=== PATIENT | male | born 1990 | race Caucasian/White ===

== ENCOUNTER 2018-02-06 05:16 | Emergency (ER) | payer OTHER ==
[2018-02-06 06:19] LABS: Basophils % (A) 0 %; Eosinophils # (A) 0.2 k/uL (0-0.7); Eosinophils % (A) 4 %; HGB 16.5 gm/dL (13.0-17.5); Lymphocytes # (A) 1.6 k/uL (1.0-4.8); Lymphocytes % (A) 32 %; MCH 29.3 pg (25.0-35.0); MCHC 34.4 g/dL (31.0-37.0); Mean Platelet Volume 6.9; Monocytes # (A) 0.4 k/uL (0-1.0); Monocytes % (A) 8 %; Neutrophils # (A) 2.7 k/uL (1.3-7.7); Neutrophils % (A) 53 %; Platelet Count 212 k/uL (150-450); RBC 5.65 m/uL (4.30-5.90); WBC 5.1 k/uL (3.8-10.6)
--- NOTE | 2018-02-06 06:22 | ED ---
Abdominal Pain HPI - General Source: patient Mode of arrival: ambulatory Limitations: no limitations - History of Present Illness MD Complaint: abdominal pain -: hour(s) Location: RUQ Radiation: none Migration to: no migration Severity: moderate Quality: dull Consistency: colicky Improves With: nothing Worsens With: eating Associated Symptoms: nausea <ClaraLuke - Last Filed: 02/06/18 06:20> <Sawyer Fairbanks - Last Filed: 02/06/18 09:23> - General Chief Complaint: Abdominal Pain Stated Complaint: Flank Pain/pressure Time Seen by Provider: 02/06/18 05:26 - Related Data Home Medications Medication Instructions Recorded Confirmed Ibuprofen [Advil] 400 mg PO Q6HR PRN 02/06/18 02/06/18 Allergies Allergy/AdvReac Type Severity Reaction Status Date / Time No Known Allergies Allergy Verified 02/06/18 07:21 Review of Systems ROS Other: All systems not noted in ROS Statement are negative. Constitutional: Denies: fever, chills Respiratory: Denies: cough, dyspnea Cardiovascular: Denies: chest pain, palpitations, edema Gastrointestinal: Reports: abdominal pain, nausea. Denies: vomiting, diarrhea, constipation, melena, hematochezia Genitourinary: Denies: dysuria, frequency, hematuria, testicular pain Musculoskeletal: Denies: back pain Skin: Denies: rash Neurological: Denies: headache <ClaraLuke - Last Filed: 02/06/18 06:20> ROS Other: All systems not noted in ROS Statement are negative. <Sawyer Fairbanks - Last Filed: 02/06/18 09:23> ROS Statement: Those systems with pertinent positive or pertinent negative responses have been documented in the HPI. Past Medical History Past Medical History: No Reported History Additional Past Medical History / Comment(s): kidney stones History of Any Multi-Drug Resistant Organisms: None Reported Past Surgical History: Appendectomy Additional Past Surgical History / Comment(s): nasal surgery Past Psychological History: No Psychological Hx Reported Smoking Status: Never smoker Past Alcohol Use History: Occasional Past Drug Use History: None Reported <Luke Elizabeth - Last Filed: 02/06/18 06:20> General Exam Limitations: no limitations General appearance: alert, in no apparent distress Head exam: Present: atraumatic, normocephalic Eye exam: Present: normal appearance, PERRL, EOMI. Absent: scleral icterus, conjunctival injection Respiratory exam: Present: normal lung sounds bilaterally. Absent: respiratory distress, wheezes, rales, rhonchi, stridor Cardiovascular Exam: Present: regular rate, normal rhythm, normal heart sounds. Absent: systolic murmur, diastolic murmur, rubs, gallop GI/Abdominal exam: Present: soft, normal bowel sounds. Absent: distended, tenderness, guarding, rebound, rigid, mass, pulsatile mass, hernia Extremities exam: Present: normal inspection, normal capillary refill. Absent: pedal edema, calf tenderness Back exam: Present: normal inspection. Absent: CVA tenderness (R), CVA tenderness (L) Neurological exam: Present: alert Skin exam: Present: warm, dry, intact, normal color. Absent: rash <Luke Elizabeth - Last Filed: 02/06/18 06:20> Course <Luke Elizabeth - Last Filed: 02/06/18 06:20> <Sawyer Fairbanks - Last Filed: 02/06/18 09:23> Vital Signs 02/06/18 02/06/18 02/06/18 05:18 06:58 07:39 Temperature 98.8 F 98.1 F 100.5 F H Pulse Rate 80 70 68 Respiratory 18 17 18 Rate Blood Pressure 138/88 125/76 131/78 O2 Sat by Pulse 98 100 99 Oximetry 02/06/18 08:54 Temperature 99.2 F Pulse Rate 75 Respiratory 18 Rate Blood Pressure 128/81 O2 Sat by Pulse 98 Oximetry - Reevaluation(s) Reevaluation #1: 02/06/18 08:05 Patient reevaluated by myself, Dr. Fairbanks. Patient resting comfortably in bed. Patient does have mild to moderate tenderness to palpation mostly in the right upper quadrant. Patient updated on results. Patient has now developed a temperature of 100.5. Patient is receptive to computed tomography scan. Patient refuses any medication. 02/06/18 09:21 Patient again reevaluated and resting comfortably at bedside. Patient updated on CT results and need for further studies. Patient also updated on need for follow-up. Patient also refuses Tylenol. Patient updated on need to return for worsening symptoms (Sawyer Fairbanks) Medical Decision Making - Lab Data Result diagrams: 02/06/18 05:57 <Luke Elizabeth - Last Filed: 02/06/18 06:20> - Lab Data Result diagrams: 02/06/18 05:57 02/06/18 05:57 - Radiology Data Radiology results: report reviewed (Ultrasound gallbladder shows no acute process. Probable hemangioma. Computed tomography scan of the abdomen pelvis shows no acute process. Liver lesion.), image reviewed (KUB shows no acute process) <Sawyer Fairbanks - Last Filed: 02/06/18 09:23> - Lab Data Lab Results 02/06/18 02/06/18 02/06/18 Range/Units 05:57 05:57 06:37 WBC 5.1 (3.8-10.6) k/uL RBC 5.65 (4.30-5.90) m/uL Hgb 16.5 (13.0-17.5) gm/dL Hct 48.0 (39.0-53.0) % MCV 85.0 (80.0-100.0) fL MCH 29.3 (25.0-35.0) pg MCHC 34.4 (31.0-37.0) g/dL RDW 12.0 (11.5-15.5) % Plt Count 212 (150-450) k/uL Neutrophils % 53 % Lymphocytes % 32 % Monocytes % 8 % Eosinophils % 4 % Basophils % 0 % Neutrophils # 2.7 (1.3-7.7) k/uL Lymphocytes # 1.6 (1.0-4.8) k/uL Monocytes # 0.4 (0-1.0) k/uL Eosinophils # 0.2 (0-0.7) k/uL Basophils # 0.0 (0-0.2) k/uL Sodium 140 (137-145) mmol/L Potassium 3.7 (3.5-5.1) mmol/L Chloride 103 (98-107) mmol/L Carbon Dioxide 28 (22-30) mmol/L Anion Gap 9 mmol/L BUN 12 (9-20) mg/dL Creatinine 1.00 (0.66-1.25) mg/dL Est GFR (CKD-EPI)AfAm >90 (>60 ml/min/1.73 sqM) Est GFR (CKD-EPI)NonAf >90 (>60 ml/min/1.73 sqM) Glucose 88 (74-99) mg/dL Calcium 10.0 (8.4-10.2) mg/dL Total Bilirubin 0.6 (0.2-1.3) mg/dL AST 25 (17-59) U/L ALT 32 (21-72) U/L Alkaline Phosphatase 56 (38-126) U/L Total Protein 7.3 (6.3-8.2) g/dL Albumin 4.7 (3.5-5.0) g/dL Amylase 66 (30-110) U/L Lipase 44 (23-300) U/L Urine Color Light Yellow Urine Appearance Clear (Clear) Urine pH 8.0 (5.0-8.0) Ur Specific [place] 1.009 (1.001-1.035) Urine Protein Negative (Negative) Urine Glucose (UA) Negative (Negative) Urine Ketones Negative (Negative) Urine Blood Negative (Negative) Urine Nitrite Negative (Negative) Urine Bilirubin Negative (Negative) Urine Urobilinogen <2.0 (<2.0) mg/dL Ur Leukocyte Esterase Negative (Negative) Disposition <Luke Elizabeth - Last Filed: 02/06/18 06:20> Is patient prescribed a controlled substance at d/c from ED?: No Time of Disposition: 09:22 <Sawyer Fairbanks - Last Filed: 02/06/18 09:23> Clinical Impression: Abdominal pain Disposition: HOME SELF-CARE Condition: Stable Instructions: Abdominal Pain (ED) Additional Instructions: Please follow-up with primary care physician in the next couple days for recheck. Have primary care physician review ultrasound and CT results to further order testing regarding liver lesion. Return for fevers, increased pain not tolerating fluids, worsening symptoms or other concerns. Referrals: Flaca Parker DO [REFERRING] - 1-2 days Paul Dale III, MD [STAFF PHYSICIAN] - 1-2 days
[2018-02-06 06:33] LABS: ALT 32 U/L (21-72); AST 25 U/L (17-59); Albumin 4.7 g/dL (3.5-5.0); Alkaline Phosphatase 56 U/L (38-126); Amylase 66 U/L (30-110); Anion Gap 9 mmol/L; Blood Urea Nitrogen 12 mg/dL (9-20); Carbon Dioxide 28 mmol/L (22-30); Chloride 103 mmol/L (98-107); Glucose 88 mg/dL (74-99); Lipase 44 U/L (23-300); Potassium 3.7 mmol/L (3.5-5.1); Sodium 140 mmol/L (137-145); Total Bilirubin 0.6 mg/dL (0.2-1.3); Total Protein 7.3 g/dL (6.3-8.2)
--- NOTE | 2018-02-06 06:48 | XR ---
EXAM: XR Abdomen, 2 Views CLINICAL HISTORY: Abdominal pain TECHNIQUE: Frontal view of the abdomen/pelvis with upright view of the abdomen. COMPARISON: No relevant prior studies available. FINDINGS: Intraperitoneal space: No free air. Gastrointestinal tract: Unremarkable. No dilation. Bones/joints: Unremarkable. IMPRESSION: Normal abdominal x-rays.
[2018-02-06 06:59] LABS: Appearance,Urine Clear (Clear); Bilirubin,Urine Negative (Negative); Blood,Urine Negative (Negative); Color,Urine Light Yellow; Glucose,Urine (UA) Negative (Negative); Ketones,Urine Negative (Negative); Leukocyte Esterase,Urine Negative (Negative); Nitrite,Urine Negative (Negative); Protein,Urine Negative (Negative); Specific Gravity,Urine 1.009 (1.001-1.035); Urobilinogen,Urine <2.0 mg/dL (<2.0)
[2018-02-06 07:40] VITALS: RESP 18
--- NOTE | 2018-02-06 07:46 | US ---
EXAMINATION TYPE: US abdomen limited DATE OF EXAM: 02/06/2018 COMPARISON: CT 2016 CLINICAL HISTORY: Pain, attention RUQ. RUQ pain and nausea x 2 days EXAM MEASUREMENTS: Liver Length: 15.5 cm Gallbladder Wall: 0.3 cm CBD: 0.3 cm Right Kidney: 10.6 x 5.6 x 5.2 cm Pancreas: visualized portions wnl, limited by overlying midline bowel gas Liver: 2.4 x 2.5 x 2.0cm hyperechoic lesion right lobe adjacent to gallbladder, probable hemangioma Gallbladder: wnl Evidence for sonographic Boyle's sign: no CBD: visualized portions wnl, limited by overlying bowel gas Right Kidney: visualized portions wnl, limited by overlying bowel gas Visualized liver is heterogeneous in appearance. A 2.5 cm round hyperechoic lesion near gallbladder f dane likely corresponds to hypodense lesions CT axial image 46 perhaps slightly larger in size from C T. IMPRESSION: 1. No shadowing mobile gallstones are also evidence for acute cholecystitis. 2. A nonspecific 2.5 cm round hyperechoic lesion near gallbladder fossa would favor hemangioma. Nonem ergent Liver protocol contrast-enhanced CT or MRI is advised to confirm.
[2018-02-06 08:55] VITALS: BP 128/81; PULSE 75; TEMP 99.2
--- NOTE | 2018-02-06 09:14 | CT ---
EXAMINATION TYPE: CT abdomen pelvis w con DATE OF EXAM: 02/06/2018 COMPARISON: CT abdomen and pelvis May 30, 2016. Limited abdominal ultrasound earlier today. HISTORY: Flank pain right-sided CT DLP: 1232 mGycm, Automated Exposure Control for Dose Reduction was Utilized. CONTRAST: CT scan of the abdomen and pelvis is performed without oral but with IV Contrast, patient injected wi th 100mL mL of Isovue 300. FINDINGS: LUNG BASES: No significant abnormality is appreciated. LIVER/GB: Correlating with ultrasound there is 2.1 cm hypodense lesion near gallbladder fossa right h epatic lobe axial image 29. No significant change on delayed phased images axial image 28. Better vis ualize may be slightly enlarged in size from 2016 CT. PANCREAS: No significant abnormality is seen. SPLEEN: No significant abnormality is seen. ADRENALS: No significant abnormality is seen. KIDNEYS: There is symmetric cortical medullary uptake and excretion from both kidneys without evidenc e of concerning renal mass or hydronephrosis bilaterally. No definite nephrolithiasis. BOWEL: Appendix not well seen with certainty. No inflammatory change noted at base of cecum. PROSTATE/SEMINAL VESICLES: No gross abnormality seen. LYMPH NODES: No greater than 1cm abdominal or pelvic lymph nodes are appreciated. OSSEOUS STRUCTURES: No significant abnormality is seen. OTHER: No significant additional abnormality is seen. IMPRESSION: No significant acute finding is seen to account for patient's clinical symptoms. No caden l stones or hydronephrosis is evident bilaterally. Once again advise follow-up nonemergent liver prot ocol contrast-enhanced CT or MRI to definitively characterize and classify right hepatic lobe lesion.
== END 2018-02-06 09:29 | disposition home or self-care (01) ==
LOC: EC 05:16
DX: R10.11 Right upper quadrant pain (principal); R11.0 Nausea; Z87.442 Personal history of urinary calculi; Z90.49 Acquired absence of other specified parts of digestive tract; Z53.29 Procedure and treatment not carried out because of patient's decision for other reasons
CPT/HCPCS: 36415; 80053; 82150; 83690; 85025; 81003; 74018; 76705; 74177; 99284; Q9967

== ENCOUNTER → 2019-08-02 | Outpatient (CLI) | payer BC ==
--- NOTE | 2019-08-02 12:01 | US ---
EXAMINATION TYPE: US abdomen complete DATE OF EXAM: 08/02/2019 COMPARISON: 02/06/2018 CLINICAL HISTORY: D18.03 hemangioma of intra-abdominal structure. f/u of liver hemangioma, no complai nts or symptoms EXAM MEASUREMENTS: Liver Length: 16.1 cm Gallbladder Wall: 0.2 cm CBD: 0.7 cm Spleen: 9.9 cm Right Kidney: 11.1 x 4.5 x 5.6 cm Left Kidney: 10.4 x 4.9 x 5.4 cm Pancreas: limited views appear wnl Liver: 2.8 x 2.2 x 3.2 cm right lobe hemangioma seen, otherwise wnl . Previous measurement 2.4 x 2. 5 x 2.0 cm Gallbladder: wnl Evidence for sonographic Boyle's sign: no CBD: wnl Spleen: wnl Right Kidney: wnl Left Kidney: wnl Upper IVC: wnl Abd Aorta: wnl IMPRESSION: 1. Enlarged suspected hemangioma right lobe liver
== END | disposition home or self-care (01) ==
LOC: RADUSWWP 07:02
PROVIDERS: ATTEND Internal Medicine
DX: D18.03 Hemangioma of intra-abdominal structures (principal)
CPT/HCPCS: 76700

== ENCOUNTER → 2020-01-29 | Outpatient (CLI) | payer BC ==
--- NOTE | 2020-01-30 07:07 | XR ---
EXAMINATION TYPE: XR foot complete RT DATE OF EXAM: 01/29/2020 CLINICAL HISTORY: Right foot in particular first toe pain since injury 5 weeks ago. TECHNIQUE: Frontal, lateral, and oblique images of the right foot are obtained. COMPARISON: None FINDINGS: There is no acute fracture/dislocation evident in the right foot with particular attention to first toe at area of clinical concern. Some flexion in the distal second through fifth toes is pr esent. There is varus positioning of distal fourth and fifth toes The joint spaces in the right foot appear within normal limits. The overlying soft tissue appears unremarkable. IMPRESSION: There is no acute fracture or dislocation in the right foot.
== END | disposition home or self-care (01) ==
LOC: RADXRMAIN 16:34
PROVIDERS: ATTEND Internal Medicine
DX: M79.671 Pain in right foot (principal)

== ENCOUNTER → 2024-03-11 | Outpatient (CLI) | payer BC ==
--- NOTE | 2024-03-12 09:39 | XR ---
EXAMINATION TYPE: XR wrist complete RT DATE OF EXAM: 03/11/2024 COMPARISON: None HISTORY: Left arm weakness clicking noise TECHNIQUE: 4 view right wrist FINDINGS: No acute fracture or dislocation evident. Joint spaces are preserved. Soft tissues are norm al. Alignment is preserved. Follow up exams can be performed 7-10 days from acute trauma for continued pain. If there is pain at the anatomic snuff box, nuclear medicine bone scan can be performed for additional evaluation. IMPRESSION: 1. No acute or chronic changes of the right wrist radiographically apparent. [facility], , 03/12/2024 9:37 AM
== END | disposition home or self-care (01) ==
LOC: RADXRMAIN 17:29
PROVIDERS: ATTEND Internal Medicine

== ENCOUNTER → 2024-12-02 | Outpatient (CLI) | payer BC ==
--- NOTE | 2024-12-02 15:44 | XR ---
EXAMINATION TYPE: XR shoulder complete LT DATE OF EXAM: 12/02/2024 3:41 PM INDICATION: Patient age:Male; 33 years old; Reason for study: S49.92XA UNSP INJURY OF LEFT SHOULDER AND UPPER AR; pain COMPARISON: None TECHNIQUE: The left shoulder was examined in AP, internally rotated and scapular Y projections. . FINDINGS: No evidence of acute osseous pathology, joint dislocation, or soft tissue swelling. The remaining por tions of the visualized chest are unremarkable. IMPRESSION: No acute osseous pathology. [facility], , 12/02/2024 3:41 PM
== END | disposition home or self-care (01) ==
LOC: RADXRMAIN 15:23
PROVIDERS: ATTEND Internal Medicine
DX: S49.92XA Unspecified injury of left shoulder and upper arm, initial encounter (principal); X58.XXXA Exposure to other specified factors, initial encounter